=== PATIENT | female | born 1965 | race Caucasian/White ===

== ENCOUNTER 2022-05-01 13:24 | Emergency (ER) | payer BC ==
[~2022-05-01] VITALS: Ht 175.3 cm; Wt 60.3 kg
--- NOTE | 2022-05-01 13:50 | NUR ---
RECEIVED PT 56 YRS FEMALE WALKING IN C/O HEMATOMA ON LT UPPEDR THIGH NO HX TRAMA WIGLING HERE LT TOES C/O NUBNESS AND PAIN 04/12
--- NOTE | 2022-05-01 14:45 | NUR ---
RESTING AND ASLEEPY NO PAIN
--- NOTE | 2022-05-01 14:49 | NUR ---
BLOOD DROW BY LAB TACH
[2022-05-01 15:07] LABS: BASOPHILS # (AUTO) 0.1 K/uL (0.0-0.2); BASOPHILS % (AUTO) 0.9 % (0.0-2.0); EOSINOPHILS % (AUTO) 1.2 % (0.0-6.0); HEMATOCRIT 35 % (33-45); HEMOGLOBIN 11.7 g/dL (11.5-14.8); LYMPHOCYTES % (AUTO) 41.2 % (20.0-44.0); MEAN CORPUSCULAR HGB CONC 33 g/dl (31.0-36.0); MEAN CORPUSCULAR VOLUME 102 fL (82-100); MONOCYTES # (AUTO) 0.9 K/uL (0.1-1.30); MONOCYTES % (AUTO) 12.5 % (2.0-12.0); NEUTROPHILS # (AUTO) 3.2 K/uL (1.8-8.9); NEUTROPHILS % (AUTO) 44.2 % (43.0-81.0); PLATELET COUNT (AUTO) 194 K/uL (150-450); RED BLOOD CELL COUNT(AUTO) 3.46 MIL/uL (4.0-5.2); WHITE BLOOD COUNT (AUTO) 7.2 K/uL (4.3-11.0)
[2022-05-01 15:17] LABS: CALCIUM, SERUM 9.3 mg/dL (8.5-10.1); CREATININE 0.8 mg/dL (0.6-1.3); POTASSIUM 4.6 mmol/L (3.5-5.1)
[2022-05-01] MEDS ORDERED: IV NS 0.9% 1,000 ML BAG IV ONE (16:00)
[2022-05-01] MEDS ORDERED: ENOXAPARIN SODIUM 60 MG/0.6 ML DISP.SYRIN SQ ONE ×2 (16:00→16:52)
--- NOTE | 2022-05-01 16:00 | NUR ---
to ct scan
[2022-05-01] MEDS ORDERED: IOHEXOL-350 100 ML VIAL IV ONE (16:08)
[2022-05-01] MEDS ORDERED: IV NS 0.9% 250 ML IV ONE (16:09)
[2022-05-01] MEDS ORDERED: APIX5TAB PO (16:59)
[2022-05-01 17:25] VITALS: BP 152/91
== END 2022-05-01 19:30 | disposition home or self-care (01) ==
LOC: ER 13:43
DX: I82.402 Acute embolism and thrombosis of unspecified deep veins of left lower extremity (principal); M06.9 Rheumatoid arthritis, unspecified; Z90.710 Acquired absence of both cervix and uterus; Z90.89 Acquired absence of other organs; Z79.899 Other long term (current) drug therapy
CPT/HCPCS: 36415; 71275; 80048; 85025; 85730; 93005; 93971; 96360; 96372; 99285; J1650; J7030; J7050; Q9967

== ENCOUNTER 2022-07-10 01:14 | Emergency (ER) | payer BC, OTHER ==
[~2022-07-10] VITALS: Ht 175.3 cm; Wt 60.8 kg
[~2022-07-10 01:14] MED LIST: APIX5TAB PO
[2022-07-10 01:22] VITALS: BP 134/80
[2022-07-10] MEDS ORDERED: ACET-2030 PO (01:42)
[2022-07-10] MEDS ORDERED: PSEU120T83 PO (01:42)
[2022-07-10] MEDS ORDERED: Paxlovid PO (01:42)
[2022-07-10] MEDS ORDERED: BENZ-13 PO (01:42)
[2022-07-10] MEDS ORDERED: PSEUDOEPHEDRINE HCL 30 MG TABLET ONE (01:44)
[2022-07-10] MEDS ORDERED: ACETAMINOPHEN ES 500 MG TABLET ONE (01:44)
[2022-07-10] MEDS ORDERED: GUAIFENESIN/D-METHORPHAN HB 5 ML UDC ONE (01:44)
--- NOTE | 2022-07-10 01:46 | NUR ---
Patient discharged to home in stable condition. Written and verbal after care instructions given. Patient verbalizes understanding of instruction. Pt ambulatory with a steady gait
[2022-07-10] MEDS ORDERED: GUAIFENESIN/D-METHORPHAN HB 5 ML UDC PO ONE (02:00)
[2022-07-10] MEDS ORDERED: PSEUDOEPHEDRINE HCL 30 MG TABLET PO ONE (02:00)
[2022-07-10] MEDS ORDERED: ACETAMINOPHEN ES 500 MG TABLET PO ONE (02:00)
== END 2022-07-10 01:50 | disposition home or self-care (01) ==
LOC: ER 01:20
DX: U07.1 COVID-19 (principal); M06.9 Rheumatoid arthritis, unspecified; Z90.89 Acquired absence of other organs; Z98.890 Other specified postprocedural states; Z79.899 Other long term (current) drug therapy